=== PATIENT | male | born 1975 | race Hispanic/Latino ===

== ENCOUNTER → 2020-03-07 | Outpatient (CLI) | payer OTHER | LOC: RAD 15:02 | PROVIDERS: ATTEND Internal Medicine | DX: B34.2 Coronavirus infection, unspecified (principal) | CPT/HCPCS: 71046 ==

== ENCOUNTER → 2021-08-22 | Outpatient (CLI) | payer OTHER | LOC: RAD 10:19 | PROVIDERS: ATTEND Internal Medicine | DX: S33.5XXA Sprain of ligaments of lumbar spine, initial encounter (principal) | CPT/HCPCS: 72110 ==